=== PATIENT | female | born 1995 | race Caucasian/White ===

== ENCOUNTER → 2017-06-22 | Outpatient (CLI) | payer BC | LOC: LAB 11:36 | PROVIDERS: ATTEND Obstetrics & Gynecology Obstetrics | DX: O20.0 Threatened abortion (principal) | CPT/HCPCS: 36415; 84702 ==

== ENCOUNTER → 2018-04-13 | Outpatient (CLI) | payer OTHER ==
--- NOTE | 2018-04-13 14:17 | WOMENS IMAGING REPORT ---
EXAM DESCRIPTION: TRANSVAGINAL ULTRASOUND COMPLETED DATE/TIME: 04/13/2018 12:47 pm REASON FOR STUDY: DYSPAREUNIA; N94.19 N94.19 OTHER SPECIFIED DYSPAREUNIA COMPARISON: None. TECHNIQUE: Dynamic and static grayscale images acquired of the pelvis via transvaginal approach and recorded on PACS. Additional selected color Doppler and spectral images recorded. LIMITATIONS: None. FINDINGS: UTERUS: Contour normal. No mass. ENDOMETRIAL STRIPE: No focal or generalized thickening. No masses. CERVIX: No nabothian cysts. RIGHT OVARY AND DOPPLER: Normal size. No worrisome masses. Normal arterial vascular flow without evid ence for torsion. LEFT OVARY AND DOPPLER: Normal size. No worrisome masses. Normal arterial vascular flow without evide nce for torsion. FREE FLUID: There is a small amount of free fluid. OTHER: No other significant finding. MEASUREMENTS: UTERUS: 7.8 x 3.6 x 4.8 cm. ENDOMETRIAL STRIPE: 9 mm. RIGHT OVARY: 3.5 x 3 x 3.1 cm. LEFT OVARY: 2.8 x 2.4 x 2.9 cm. IMPRESSION: There is a small amount of free fluid in the pelvis. The study is essentially normal. TECHNICAL DOCUMENTATION: JOB ID: [id number] [employer]- All Rights Reserved Rev Reading location - IP/workstation name: [email or web address]
== END ==
LOC: WI 11:03
PROVIDERS: ATTEND Physician Assistant
DX: N94.19 Other specified dyspareunia (principal)
CPT/HCPCS: 76830